=== PATIENT | female | born 1965 | race Caucasian/White ===

== ENCOUNTER 2018-04-09 09:56 | Outpatient (CLI) | payer OTHER, SELFPAY ==
[2018-04-09 11:32] LABS: Anion Gap 8.2 mmol/L (3-11); BUN 14 mg/dL (7-18); CO2 28.8 mmol/L (21.0-32.0); CREATININE 0.64 mg/dL (0.55-1.02); Chloride 105 mmol/L (98-107); Cholesterol 194 mg/dL (50-200); Glucose 101 mg/dL (70-100); HDL Cholesterol 52 mg/dL (40-60); LDL CHOLESTEROL 123 mg/dL (<100); Potassium 4.3 mmol/L (3.5-5.1); Sodium 142 mmol/L (136-145); Triglyceride 99 mg/dL (30-150)
== END 2018-04-09 10:16 ==
PROVIDERS: PCP General Practice; Visit Provider General Practice
DX: Z00.00 Encounter for general adult medical examination without abnormal findings (principal); I10 Essential (primary) hypertension
CPT/HCPCS: 36415; 80051; 80061; 82947; 83721; 84520; 82565

== ENCOUNTER 2019-06-09 15:34 | Outpatient (REF) | payer OTHER, SELFPAY | END 2019-06-09 15:54 | LOC: LBN 15:34 | PROVIDERS: PCP Nurse Practitioner Adult Health; Visit Provider Nurse Practitioner Adult Health | DX: R53.81 Other malaise (principal); R53.83 Other fatigue; R50.9 Fever, unspecified | CPT/HCPCS: 87449 ==

== ENCOUNTER 2019-06-23 11:40 | Outpatient (REF) | payer OTHER, SELFPAY ==
--- NOTE | 2019-06-23 11:45 | PAPFT_PTH ---
PATIENT: Uri Wadsworth LOC: [facility] U#:[id number] AGE/SX: 54/F ROOM: RE06/23/[address]: Karla Washington APRN : 1965 BED: DIS: 06/23/2019 SPEC #: [id number] RECD: 06/23/19 18:28 STATUS: LAUREN REMerna #: [id number] SHELBI: 06/23/19 11:[address]: Karla Washington DEPT: [facility] Cytology RECD BY: Ana Barnard Tissues: 1 - CX/ENDOCX FOR PAP SMEARS Procedures: PAP THIN PREP/UVM Screening HPV DNA PROBE Comments: [id number]
== END 2019-06-23 12:00 ==
LOC: LBN 11:40
PROVIDERS: PCP Nurse Practitioner Adult Health; Visit Provider Nurse Practitioner Adult Health
DX: Z12.4 Encounter for screening for malignant neoplasm of cervix (principal); Z11.51 Encounter for screening for human papillomavirus (HPV)
CPT/HCPCS: 88142; 87624

== ENCOUNTER 2019-06-24 02:27 | Outpatient (CLI) | payer OTHER, SELFPAY ==
[2019-06-24 11:46] LABS: ALT 42 U/L (14-59); AST 16 U/L (15-37); Albumin 3.3 g/dL (3.4-5.0); Alkaline Phosphatase 76 U/L (46-116); Anion Gap 7.4 mmol/L (3-11); BUN 13 mg/dL (7-18); Bilirubin, Total 0.4 mg/dL (0.2-1.0); CO2 28.6 mmol/L (21.0-32.0); CREATININE 0.57 mg/dL (0.55-1.02); Calcium 8.9 mg/dL (8.5-10.1); Calculated LDL 114 mg/dL; Chloride 105 mmol/L (98-107); Cholesterol 184 mg/dL (<200); Glucose 110 mg/dL (74-106); HDL Cholesterol 50 mg/dL (40-60); Potassium 3.8 mmol/L (3.5-5.1); Sodium 141 mmol/L (136-145); TSH (W/Ref FT4) 1.08 uIU/mL (0.36-3.74); Total Protein 6.1 g/dL (6.4-8.2); Triglyceride 104 mg/dL (<150)
[2019-06-26 11:32] LABS: Hepatitis C Ab w Rflx HCV PCR Negative (Negative)
== END 2019-06-24 02:47 ==
PROVIDERS: PCP Nurse Practitioner Adult Health; Visit Provider Nurse Practitioner Adult Health
DX: I10 Essential (primary) hypertension (principal); E88.01 Alpha-1-antitrypsin deficiency; R73.01 Impaired fasting glucose; E66.9 Obesity, unspecified; Z11.59 Encounter for screening for other viral diseases
CPT/HCPCS: 36415; 80053; 80061; 86803; 83036; 84443

== ENCOUNTER 2019-06-30 17:11 | Outpatient (REF) | payer OTHER, SELFPAY ==
--- NOTE | 2019-06-30 15:15 | CER_PTH ---
PATIENT: Uri Wadsworth LOC: [facility] U#:[id number] AGE/SX: 54/F ROOM: RE06/30/[address]: Alfredo Anderson MD : 1965 BED: DIS: 06/30/2019 SPEC #: [id number] RECD: 06/30/19 17:46 STATUS: LAUREN REMerna #: [id number] SHELBI: 06/30/19 15:[address]: Alfredo Anderson DEPT: Surgical Specimen RECD BY: Ana Barnard ENTERED: 06/30/19 17:47 SP TYPE: CER MARLEY DR: Karla Washington APRN Tissues: 1 - CERVICAL BIOPSY Procedures: GROSS AND MICRO LEVEL 4 Comments: [id number]
== END 2019-06-30 17:31 ==
LOC: LBN 17:11
PROVIDERS: PCP Nurse Practitioner Adult Health; Visit Provider Obstetrics & Gynecology
DX: N84.1 Polyp of cervix uteri (principal)
CPT/HCPCS: 88305

== ENCOUNTER 2019-11-03 01:41 | Outpatient (CLI) | payer OTHER, SELFPAY ==
--- NOTE | 2019-11-03 09:15 | DI.MAMMO_ITS ---
EXAM: MAMMO SCREENING CLINICAL HISTORY: screening,Z12.39 TECHNIQUE: Mammograms were interpreted according to the usual protocol including computer analysis w [employer] CAD system, tomosynthesis and C-view imaging. COMPARISON: FINDINGS: The breasts are of moderate density with fairly symmetrical distribution of fibroglandular tissue. N o dominant mass or clumped microcalcification is identified in either breast. The current examinatio n is compared with prior studies including October 2017 and there has been no gross interval change in a ppearance in comparison with the prior examinations. IMPRESSION: No specific evidence of malignancy at this time. Routine screening examinations are suggested at yea rly intervals in this age group according to the ACS ACR guidelines. BI-RADS Cat 1 - Negative: Breast Density - Category B - Scattered areas of fibroglandular density:
== END 2019-11-03 02:01 ==
PROVIDERS: PCP Nurse Practitioner Adult Health; Visit Provider Nurse Practitioner Adult Health
DX: Z12.31 Encounter for screening mammogram for malignant neoplasm of breast (principal)
CPT/HCPCS: 77063; 77067

== ENCOUNTER 2020-04-09 07:43 | Outpatient (CLI) | payer OTHER, SELFPAY ==
[2020-04-10 12:36] LABS: SARS-CoV-2 RNA Not Detected (NotDetected); SARS-CoV-2 RNA Source Nasal/Nares
== END 2020-04-09 08:03 ==
PROVIDERS: PCP Nurse Practitioner Adult Health; Visit Provider Surgery
DX: Z11.59 Encounter for screening for other viral diseases (principal); Z01.818 Encounter for other preprocedural examination
CPT/HCPCS: U0003

== ENCOUNTER 2020-04-12 07:03 | Day surgery (SDC) | payer OTHER, SELFPAY ==
[2020-04-12 07:17] VITALS: BP 153/95; PULSE 80; RESP 16; TEMP 36.4; O2SAT 95
[2020-04-12] MEDS: Lactated Ringers 1,000 ML 80 ML IV (07:45)
--- NOTE | 2020-04-12 08:02 | W.PM.DSUDISC ---
Discharge Plan Disposition Patient Disposition: HOME Condition: Good Discharge Details Reason For Visit: Colonoscopy Attending Provider: Katey Muñoz Primary Care Provider: Karla Washington Home Meds and New Rx's Prescriptions: Continued fexofenadine [Patria Allergy] 180 mg tablet 180 mg PO DAILY RF: 0 desloratadine 5 mg tablet 5 mg PO HS RF: 0 epinephrine [EpiPen 2-Manoj] 0.3 mg/0.3 mL auto-injector 0.3 mg IM ONCE RF: 0 allergy drops 3 drp sublingual DAILY RF: 0 Breo Ellipta 200-25 mcg/dose blister with device 1 inh IH DAILY Qty: 180 RF: 3 levalbuterol HCl [Xopenex] 1.25 mg/3 mL solution for nebulization 1.25 mg Inhalation Q4H PRN Qty: 90 RF: 1 levalbuterol tartrate [Xopenex HFA] 45 mcg/actuation HFA aerosol inhaler 1 - 2 inh IH Q6H PRN (Reason: shortness of breath or wheezing) Qty: 15 RF: 1 montelukast [Singulair] 10 MG tablet 10 mg PO DAILY Qty: 90 RF: 3 hydrochlorothiazide 12.5 mg tablet 12.5 mg PO DAILY Qty: 90 RF: 3 lisinopril 20 mg tablet 20 mg PO DAILY Qty: 90 RF: 3 Discharge Instructions Additional Instructions: Findings: Your colonoscopy showed diverticulosis in the sigmoid colon. Make sure to take in 30 grams of fiber daily. Follow up: Plan for routine screening colonoscopy in 10 years. Please call if you develop: fevers >101.5 Nausea or Vomiting Abdominal pain that is not transient DAY SURGERY UNIT POST COLONOSCOPY INSTRUCTIONS 1. Because there will be medication in your system for the next 24 hours, you may feel a little sleepy. Your coordination will be affected. Therefore: a. Do not drive or operate dangerous equipment for 24 hours. b. Do not drink alcohol beverages for 24 hours (not even beer). c. Plan to go home and rest for the day. 2. Generally there are no restrictions on your activity after a day or so has gone by, but you may feel a bit fatigued for a few days. 3 After you arrive home you may have a light meal and return to a normal diet as you can tolerate it without feeling sick to your stomach. 4. After surgery, you may feel pain or discomfort. This should be only transient, but if it persists please contact your doctor. 5. If there are any questions regarding the findings of your procedure, please feel free to contact your doctor. 6. If you are unable to contact your doctor with a problem, contact the hospital at [phone]. 7. Continue all your regular medications unless directed otherwise. I understand the above instructions and have no questions. Signature of Patient or Responsible Adult Escort Date/Time Name of Responsible Adult Escort Signature of Nurse Date/Time Activity:: Activity as Tolerated Diet:: As Tolerated Discharge Orders Discharge Orders: Discharge Order (Routine); Ordered 04/12/20 Ordered By: Katey Muñoz DS: Diagnosis Discharge Diagnosis (1) Diverticulosis: Status: Acute
--- NOTE | 2020-04-12 08:03 | W.COLOREPORT ---
Date of service: 04/12/20 Time of Service: 08:53 Colonoscopy Report Date of procedure: 04/12/20 Pre-op diagnosis general: Screening Post-op diagnosis procedure note: other (Diverticulosis) Procedure: Colonoscopy Surgeon: Katey Muñoz Anesthesia proc note operative: MAC Indications: This 54 year old woman presents for her first screening colonoscopy. She has no symptoms or FH colon cancer. Procedure Description: The patient was placed in the left Recinos position. Propofol was titrated to sedation. Digital rectal examination revealed no abnormalities. The scope was advanced to the cecum without difficulty. The ileocecal valve and appendiceal orifice were clearly identified. The prep was adequate although there were areas of solid stool in the sigmoid region that could obscure a small polyp. The scope was slowly withdrawn over the course of greater than 6 minutes with no abnormalities seen in the ascending, transverse, descending colon. The sigmoid colon showed moderate to severe diverticular change. The rectum was normal including on retroflexed view. The patient tolerated the procedure well and was stable to recovery. Plan for routine screening colonoscopy in 10 years or sooner if symptoms indicate.
[2020-04-12 09:30] VITALS: BP 133/83; PULSE 70; RESP 16; TEMP 36.2; O2SAT 96
== END 2020-04-12 10:08 | disposition home or self-care (01) ==
PROVIDERS: PCP Nurse Practitioner Adult Health; Visit Provider Surgery
PROC: 0DJD8ZZ Inspection of Lower Intestinal Tract, Via Natural or Artificial Opening Endoscopic (ICD-10-PCS; CPT 45378; principal; 2020-04-12 08:15)
DX: Z12.11 Encounter for screening for malignant neoplasm of colon (principal); K57.30 Diverticulosis of large intestine without perforation or abscess without bleeding; I10 Essential (primary) hypertension; K21.9 Gastro-esophageal reflux disease without esophagitis; J45.909 Unspecified asthma, uncomplicated
CPT/HCPCS: 45378; J2001

== ENCOUNTER 2021-01-03 15:12 | Outpatient (CLI) | payer OTHER, SELFPAY ==
[2021-01-03 14:28] LABS: Abs Immature Grans 0.03 10^3/uL (0.0-0.06); Absolute Basophil Count 0.08 10^3/uL (0.0-0.2); Absolute Eosinophil Count 0.23 10^3/uL (0.0-0.7); Absolute Lymphocyte Count 1.64 10^3/uL (1.2-3.4); Absolute Monocyte Count 0.46 10^3/uL (0.1-0.8); Absolute Neutrophil Count 5.22 10^3/uL (1.2-6.7); HCT 46.2 % (36.0-46.0); HGB 14.6 g/dL (11.2-15.7); Immature Grans % 0.4; Lymphocytes % 21.4; MCHC 31.6 % (32.0-36.0); MCV 85.6 fL (80-95); MPV 9.6 fL (8.0-11.0); Neutrophils % 68.2; Nucleated RBC 0 %; Platelet Count 258 10^3/uL (130-400); RDW 12.9 % (11.7-14.6); RDW-SD 40.2 fL; WBC 7.66 10^3/uL (4.4-10.8)
[2021-01-06 09:10] LABS: IgE 10 IU/mL (<158)
== END 2021-01-03 15:13 | disposition home or self-care (01) ==
LOC: LBO 15:18
PROVIDERS: PCP Nurse Practitioner Adult Health; Visit Provider Student in an Organized Health Care Education/Training Program
DX: J45.40 Moderate persistent asthma, uncomplicated (principal)
CPT/HCPCS: 36415; 82785; 85025

== ENCOUNTER 2021-01-09 04:38 | Outpatient (CLI) | payer OTHER, SELFPAY ==
[2021-01-09] MEDS: Inhaler, Assist Device 1 EACH MC (12:22)
[2021-01-09] MEDS: Albuterol HFA 18 GM 200 PUFF INH IH (12:22)
--- NOTE | 2021-01-10 15:05 | W.PFT ---
Date of service: 01/09/21 Time of Service: 11:23 Pulmonary Function Test Result Requesting Provider Elmer Interpretation Spirometry: There is no airflow limitation. There is no significant bronchodilator effect. Impression Normal spirometry. Note: When compared to 02/10/2010 there has been essentially no change in her FEV1 and FVC when accounting for changes related to aging. Clinical Correlation therefore is recommended.
== END 2021-01-09 04:39 | disposition home or self-care (01) ==
LOC: RT 04:38
PROVIDERS: PCP Nurse Practitioner Adult Health; Visit Provider Student in an Organized Health Care Education/Training Program
DX: J45.909 Unspecified asthma, uncomplicated (principal)
CPT/HCPCS: 94060

== ENCOUNTER 2022-01-08 01:53 | Outpatient (CLI) | payer OTHER, SELFPAY ==
[2022-01-08 10:13] LABS: Hemoglobin A1C 6.2 % (<5.7)
[2022-01-08 10:15] LABS: BUN 12 mg/dL (7-18); CREATININE 0.6 mg/dL (0.55-1.02); Calcium 8.6 mg/dL (8.5-10.1); Calculated LDL 92 mg/dL (<100); Chloride 105 mmol/L (98-107); Cholesterol 168 mg/dL (<200); Glucose 109 mg/dL (74-106); HDL Cholesterol 54 mg/dL (40-60); Potassium 3.7 mmol/L (3.5-5.1); Sodium 143 mmol/L (136-145); Triglyceride 111 mg/dL (<150)
== END 2022-01-08 01:54 | disposition home or self-care (01) ==
PROVIDERS: PCP Nurse Practitioner Adult Health; Visit Provider Nurse Practitioner Adult Health
DX: I10 Essential (primary) hypertension (principal); R73.01 Impaired fasting glucose; E66.9 Obesity, unspecified; Z13.220 Encounter for screening for lipoid disorders
CPT/HCPCS: 36415; 80048; 80061; 83036

== ENCOUNTER → 2022-01-09 00:14 | Outpatient (CLI) | payer OTHER, SELFPAY ==
--- NOTE | 2022-01-09 07:30 | DI.MAMMO_ITS ---
Exam(s) MAMMO SCREENING EXAM: MAMMO SCREENING CLINICAL HISTORY: screening,z12.39 TECHNIQUE: Mammograms were interpreted according to the usual protocol including computer analysis w [employer] CAD system, tomosynthesis and C-view imaging. COMPARISON: 2013 through 2019 FINDINGS: The breasts are composed of mainly fatty density , Breast Density category A. No suspicious masses or suspicious microcalcifications are seen. No skin thickening or abnormal axillary lymph nodes are seen. There has been no significant change from prior exams. IMPRESSION: BI-RADS Category 1, Negative mammogram Yearly screening mammography is recommended. Breast Density - Category A, fatty density. A negative radiographic report should not delay biopsy if a dominant or clinically suspicious mass is present. Up to ten percent of cancers are not identified on mammography. A negative report may reinforce clinical impression. Adenosis and dense breasts may obscure an underlying neoplasm. False positive reports average 6 to 10%. Patient will receive a letter notifying them of these results.
== END ==
PROVIDERS: PCP Nurse Practitioner Adult Health; Visit Provider Nurse Practitioner Adult Health
DX: Z12.31 Encounter for screening mammogram for malignant neoplasm of breast (principal)
CPT/HCPCS: 77063; 77067

== ENCOUNTER 2023-04-07 01:57 | Outpatient (CLI) | payer OTHER, SELFPAY ==
[2023-04-07 10:03] LABS: Anion Gap 8.3 mmol/L (3-11); BUN 14 mg/dL (7-18); CO2 27.7 mmol/L (21.0-32.0); CREATININE 0.8 mg/dL (0.55-1.02); Calcium 9.2 mg/dL (8.5-10.1); Chloride 104 mmol/L (98-107); Estimated GFR 85.35 (mL/min/1.73m2); Glucose 122 mg/dL (74-106); Potassium 3.6 mmol/L (3.5-5.1); Sodium 140 mmol/L (136-145)
[2023-04-07 10:18] LABS: Hemoglobin A1C 6.2 % (<5.7)
== END 2023-04-07 01:58 | disposition home or self-care (01) ==
LOC: LBO 01:57
PROVIDERS: PCP Nurse Practitioner Adult Health; Visit Provider Nurse Practitioner Adult Health
DX: I10 Essential (primary) hypertension (principal); R73.01 Impaired fasting glucose
CPT/HCPCS: 36415; 80048; 83036

== ENCOUNTER → 2023-04-15 03:20 | Outpatient (CLI) | payer OTHER, SELFPAY ==
--- NOTE | 2023-04-15 11:35 | DI.RAD_ITS ---
Exam(s) XR KNEE LT 3V AP,LAT,MANUEL EXAM: XR KNEE LT 3V AP,LAT,MANUEL CLINICAL HISTORY: ant knee pain,LT,M25.562. TECHNIQUE: 2D digital imaging was performed. Three views. COMPARISON: No exams were available for comparison FINDINGS: BONES: No acute fracture is present. No bony destructive lesion is seen. JOINTS: Severe narrowing of the medial femoral tibial joint space with periarticular spurring and scl erosis. This creates some varus angulation. Mild spurring from the lateral femoral tibial joint and patellofemoral joint. Bipartite patella at upper lateral border. No joint effusion is seen. SOFT TISSUE: Normal. IMPRESSION: Severe degenerative changes of the medial femoral tibial joint. DATA REPOSITORY: RADIATION DOSE DELIVERED:
== END ==
PROVIDERS: PCP Nurse Practitioner Adult Health; Visit Provider Nurse Practitioner Adult Health
DX: M17.12 Unilateral primary osteoarthritis, left knee (principal)
CPT/HCPCS: 73562

== ENCOUNTER 2024-01-24 02:30 | Outpatient (CLI) | payer OTHER, SELFPAY ==
--- NOTE | 2024-01-24 08:45 | DI.MAMMO_ITS ---
Exam(s) MAMMO SCREENING EXAM: MAMMO SCREENING CLINICAL HISTORY: screening, Z12.39. TECHNIQUE: Bilateral full field digital CC and MLO mammographic images were obtained with 3D tomosyn thesis and utilizing computer aided detection (CAD). COMPARISON: Prior mammograms were reviewed. FINDINGS: There has been no significant change in the appearance and distribution of the fibroglandular tissue. There are no new spiculated masses nor malignant appearing microcalcification groups. There is no significant architectural distortion nor skin thickening-retraction. IMPRESSION: No radiographic evidence of malignancy. BI-RADS Category 1 - Negative Breast Density - Category B - Scattered areas of fibroglandular density Breast density Category C or D implies that the patient has dense breast tissue. Dense breast tissue can make it harder to find cancer on a mammogram. Dense breast tissue is also associated with an incr eased risk of breast cancer. This information about the result of the mammogram report was provided to the patient to raise their awareness. Use this report when you speak with the patient about their risks for breast cancer, which includes their family history. At that time, you may recommend additional screening tests (Ultrasoun d or MRI) as these tests may add significant information. A negative radiographic report should not delay biopsy if a dominant or clinically suspicious mass is present. Up to ten percent of cancers are not identified on mammography. A negative report may reinforce clinical impression. Adenosis and dense breasts may obscure an underlying neoplasm. False positive reports average 6 to 10%. Patient will receive a letter notifying them of these results.
== END 2024-01-24 02:50 ==
LOC: DI 02:30
PROVIDERS: PCP Nurse Practitioner Adult Health; Visit Provider Nurse Practitioner Adult Health
DX: Z12.31 Encounter for screening mammogram for malignant neoplasm of breast (principal)
CPT/HCPCS: 77063; 77067

== ENCOUNTER 2024-02-08 16:29 | Outpatient (CLI) | payer OTHER, SELFPAY ==
[2024-02-08 17:06] LABS: TSH (W/Ref FT4) 1.33 uIU/mL (0.36-3.74)
== END 2024-02-08 16:30 | disposition home or self-care (01) ==
LOC: LBO 16:30
PROVIDERS: PCP Nurse Practitioner Adult Health; Visit Provider Obstetrics & Gynecology
DX: N93.8 Other specified abnormal uterine and vaginal bleeding (principal)
CPT/HCPCS: 36415; 83001; 84443

== ENCOUNTER 2024-02-11 18:34 | Outpatient (REF) | payer OTHER, SELFPAY ==
[2024-02-11 15:59] LABS: Anion Gap 4.9 mmol/L (3-11); BUN 17 mg/dL (7-18); CO2 30.1 mmol/L (21.0-32.0); CREATININE 0.7 mg/dL (0.55-1.02); Calcium 9.5 mg/dL (8.5-10.1); Chloride 101 mmol/L (98-107); Estimated GFR 99.57 (mL/min/1.73m2); Glucose 146 mg/dL (74-106); Sodium 136 mmol/L (136-145)
== END 2024-02-11 18:35 | disposition home or self-care (01) ==
LOC: LBN 18:34
PROVIDERS: PCP Nurse Practitioner Family; Visit Provider Nurse Practitioner Family
DX: I10 Essential (primary) hypertension (principal); Z23 Encounter for immunization
CPT/HCPCS: 80048

== ENCOUNTER 2024-03-08 12:00 | Outpatient (CLI) | payer OTHER, SELFPAY ==
[2024-03-08 12:09] VITALS: BP 148/81; PULSE 73; RESP 14; TEMP 36.1; O2SAT 96
--- NOTE | 2024-03-08 12:37 | PDOC.PAIN_ITS ---
Date of service: 03/08/24 Time of Service: 13:12 Pain Managment Procedure Note Procedure Note Procedure Note: Genicular Nerve Block ? Location: Left Superior Lateral, Superior Medial, Medial Retinacular and Inferior Medial Genicular Nerve Branches ? Pre-procedure Diagnosis: M25.562 Pain in left knee? , M17.12 Unliateral primary osteoarthritis, left knee ? Post-procedure Diagnosis:? The same as above ? Sedation:? none ? Estimated blood loss:? less than 2 cc ? Surgeon:? Greyson Emerson MD ? Procedure Detail:? The patient was brought to the procedure room and placed in the supine position on the fluoroscopy table. The patient's left knee was then placed on pillows as tolerated to facilitate modest flexion of the joint and offset from the non-treated knee in the lateral view. Time out was performed in the procedure room with nursing staff confirming the patient's identity, procedure to be performed, allergies, and any blood thinning or anti- platelet medications. The skin of the target knee was prepped with ChloraPrep in a sterile fashion. Sterile gloves were used, a face mask was worn, and new single dose vials of all medications were used with the top being swabbed with alcohol and given time to dry prior to withdrawal of medication.? The superior medial and superior lateral epicondyles of the femur as well as the distal aspect of the medial tibial epicondyle was identified using an AP fluoroscopic view.?Ethyl Chloride was used to anesthetize the skin. With fluoroscopic guidance, four 22 gauge 5, Quincke needles were advanced until reaching the mid-level of the femur and tibia at the expected location of the genicular nerve branches. 0.5 mL of contrast was injected at each of the nerve sites after negative aspiration.? Contrast showed appropriate spread covering the expected location of the genicular nerve branches. Again, after negative aspiration, 1 mL of 0.5% Bupivacaine was injected at each of the sites.? The needles were gently removed.? The patient tolerated the procedure well and was transferred to the recovery room in stable condition.? Permanent images were saved and recorded. PLAN: Pt will f/u for genicular RF or office visit depending on whether meets criteria. COMMENT: WILL USE 100MM RF CANULA
[2024-03-08 12:42] VITALS: O2SAT 98
[2024-03-08 12:50] VITALS: O2SAT 98
--- NOTE | 2024-03-08 13:07 | DI.RAD_ITS ---
Exam(s) XR PAIN CLINIC FLUORO JOINT IN EXAM: XR PAIN CLINIC FLUORO JOINT IN CLINICAL HISTORY: DX: Left knee Osteoarthritis. TECHNIQUE: Fluoroscopy was provided for the referring physician for guidance with performing pain cl inic injection procedure. COMPARISON: No exams were available for comparison FINDINGS: Please see procedure note for details. Fluoro time: 38.6 seconds RADIATION DOSE DELIVERED: brandan Wick=5.68 mGy
[2024-03-08] MEDS: Omnipaque 240 MG/ML 50 ML BTL IJ (13:08)
[2024-03-08] MEDS: Nerve Block Tray 1 EACH MC (13:08)
[2024-03-08] MEDS: Bupivacaine 0.5% Pres-Free 10 ML VIAL IJ (13:08)
== END 2024-03-08 12:01 | disposition home or self-care (01) ==
LOC: PC 12:00
PROVIDERS: PCP Nurse Practitioner Family; Visit Provider Anesthesiology Pain Medicine
DX: M17.12 Unilateral primary osteoarthritis, left knee (principal)
CPT/HCPCS: 00123; 64454; 77002; J0665; Q9967

== ENCOUNTER 2024-03-13 16:36 | Outpatient (REF) | payer OTHER, SELFPAY ==
[2024-03-13 16:59] LABS: Abs Immature Grans 0.02 10^3/uL (0.0-0.06); Absolute Basophil Count 0.07 10^3/uL (0.0-0.2); Absolute Eosinophil Count 0.16 10^3/uL (0.0-0.7); Absolute Lymphocyte Count 1.47 10^3/uL (1.2-3.4); Absolute Monocyte Count 0.54 10^3/uL (0.1-0.8); Absolute Neutrophil Count 3.82 10^3/uL (1.2-6.7); Basophils % 1.2 %; Eosinophils % 2.6 %; HCT 41.9 % (36.0-46.0); Immature Grans % 0.3 %; Lymphocytes % 24.2 %; MCH 27.7 pg (27.0-33.0); MCHC 33.4 % (32.0-36.0); MCV 83 fL (80-95); MPV 10.2 fL (8.0-11.0); Monocytes % 8.9 %; Neutrophils % 62.8 %; Platelet Count 238 10^3/uL (130-400); RBC 5.06 10^6/uL (3.93-5.22); RDW 13.2 % (11.7-14.6); RDW-SD 39.7 fL; WBC 6.08 10^3/uL (4.4-10.8)
[2024-03-13 17:08] LABS: ESR 17 mm/hr (0-30)
[2024-03-13 17:32] LABS: C-Reactive Protein 1.32 mg/dL (<or=0.5)
[2024-03-14 17:40] LABS: Rheumatoid Factor 10.2 IU/mL (<12.0)
[2024-03-15 09:54] LABS: Cyclic Citrullinated Peptide <2.5 U/mL (<5.0)
[2024-03-15 10:38] LABS: IgE 19 IU/mL (<158)
[2024-03-15 16:05] LABS: ANA Interpretation Negative (Negative)
[2024-03-15 20:10] LABS: Scl 70 Antibodies, IgG <0.2 U
[2024-03-15 21:49] LABS: Myeloperoxidase Ab IgG <0.2 U (>=0.4); Proteinase 3 Ab (PR3) <0.2 U
== END 2024-03-13 16:37 | disposition home or self-care (01) ==
LOC: LBN 16:36
PROVIDERS: PCP Nurse Practitioner Family; Visit Provider Physician Assistant Surgical
DX: J45.40 Moderate persistent asthma, uncomplicated (principal); I89.0 Lymphedema, not elsewhere classified
CPT/HCPCS: 85652; 86200; 82785; 83516; 85025; 86038; 86140; 86235; 86431

== ENCOUNTER 2024-04-04 08:29 | Outpatient (CLI) | payer OTHER, SELFPAY ==
[2024-04-04] VITALS (14 sets, daily range): BP systolic 124–145; BP diastolic 69–88; PULSE 69–92; RESP 7–20; TEMP 36.5; O2SAT 94–100
--- NOTE | 2024-04-04 09:20 | PDOC.PAIN_ITS ---
Date of service: 04/04/24 Time of Service: 10:12 Pain Managment Procedure Note Procedure Note Procedure Note: ?Genicular Nerve COOLED RF ? Location: Left Superior Lateral, Superior Medial, Suprapatellar and Inferior Medial Genicular Nerve Branches ? Pre-procedure Diagnosis: M25.562 Pain in left knee? , M17.12 Unliateral primary osteoarthritis, left knee ? Post-procedure Diagnosis:? The same as above ? Sedation: VERSED 1 MG Fentanyl 50mcg ? Estimated blood loss:? less than 2 cc ? Surgeon:? Greyson Emerson MD ? Procedure Detail:? The patient was brought to the procedure room and placed in the supine position on the fluoroscopy table. The patient's? LEFT knee was then placed on pillows as tolerated to facilitate modest flexion of the joint and offset from the non-treated knee in the lateral view. Time out was pe rformed in the procedure room with nursing staff confirming the patient's identity, procedure to be performed, allergies, and any blood thinning or anti- platelet medications. The skin of the target knee was prepped with ChloraPrep in a sterile fashion. Sterile gloves were used, a face mask was worn, and new single dose vials of all medications were used with the top being swabbed with alcohol and given time to dry prior to withdrawal of medication.? The superior medial and superior lateral epicondyles of the femur, 3cm above the patella midline femur as well as the distal aspect of the medial tibial epicondyle was identified using an AP fluoroscopic view.? With fluoroscopic guidance, three? 17-gauge 4mm active tip radiofrequency cannula was advanced to the periosteum at this location.? AP and lateral views confirmed appropriate placement. Motor testing was negative for stimulation up to 2 V. Next 1 cc of 2% lidocaine was injected through each needle tip. Lesioning was then carried out at 60 degrees Celsius for 150 seconds? The needles were gently removed.? The patient tolerated the procedure well and was transferred to the recovery room in stable condition.? Permanent images were saved and recorded. Pain: pre-preprocedure 10 post procedure 010 PLAN: Pt will f/u prn. Repeat prn
[2024-04-04] MEDS: fentaNYL 100 MCG/2 ML VIAL IVP (09:30)
[2024-04-04] MEDS: Midazolam 2 MG/2 ML VIAL IVP (09:30)
[2024-04-04] MEDS: Lidocaine 2% Multi-Dose 20 ML VIAL IJ (10:07)
[2024-04-04] MEDS: Nerve Block Tray 1 EACH MC (10:08)
--- NOTE | 2024-04-04 10:11 | DI.RAD_ITS ---
Exam(s) XR PAIN CLINIC FLUORO JOINT IN EXAM: XR PAIN CLINIC FLUORO JOINT IN CLINICAL HISTORY: DX: Knee Osteoarthritis TECHNIQUE: 2D and realtime digital imaging was performed. CONTRAST MATERIAL: Refer to procedure report. COMPARISON: No exams were available for comparison FINDINGS: Fluoroscopy was provided for Dr. Emerson during the performance of a left genicular nerve radiofrequ ency ablation. Please refer to the procedure report for complete details. Ka,r=7.0 mGy IMPRESSION: RADIATION DOSE DELIVERED: 0.0 0.0 0
== END 2024-04-04 08:30 | disposition home or self-care (01) ==
LOC: PC 08:29
PROVIDERS: PCP Nurse Practitioner Family; Visit Provider Anesthesiology Pain Medicine
DX: M17.12 Unilateral primary osteoarthritis, left knee (principal)
CPT/HCPCS: 00123; 64624; 77002; J2003; J2250; J3010

== ENCOUNTER 2024-05-08 10:58 | Outpatient (CLI) | payer OTHER, SELFPAY ==
--- NOTE | 2024-05-08 10:30 | DI.RAD_ITS ---
Exam(s) XR FOOT RT COMPLETE EXAM: XR FOOT RT COMPLETE CLINICAL HISTORY: rt foot pain, m79.671, ? stress fx. TECHNIQUE: 2D digital imaging was performed. COMPARISON: No exams were available for comparison FINDINGS: 3 views There is dorsal soft tissue swelling and there is pes planus. No evidence of acute fracture or diastasis of the Lisfranc joint. Great toe metatarsophalangeal joint appears unremarkable as do the other MTP joints and there are onl y mild degenerative changes in the 2nd and 3rd tarsometatarsal joints. There is a small inferior richard caneal spur. Os trigonum noted. IMPRESSION: Pes planus. No fractures. DATA REPOSITORY: RADIATION DOSE DELIVERED:
== END 2024-05-08 11:18 ==
LOC: DI 10:59
PROVIDERS: PCP Nurse Practitioner Family; Visit Provider Nurse Practitioner Family
DX: M79.671 Pain in right foot (principal)
CPT/HCPCS: 73630

== ENCOUNTER 2025-05-21 01:26 | Outpatient (CLI) | payer BC, SELFPAY ==
[2025-05-21 09:20] LABS: Hemoglobin A1C 5.8 % (<5.7)
[2025-05-21 10:18] LABS: Anion Gap 8.8 mmol/L (3-11); BUN 16 mg/dL (9-23); CO2 28.2 mmol/L (20.0-31.0); Calcium 9.4 mg/dL (8.3-10.6); Chloride 102 mmol/L (98-107); Cholesterol 193 mg/dL (<200); Glucose 101 mg/dL (74-106); HDL Cholesterol 58 mg/dL (>or=50); Potassium 4.0 mmol/L (3.5-5.1); Sodium 139 mmol/L (136-145)
== END 2025-05-21 01:27 | disposition home or self-care (01) ==
LOC: LBO 01:26
PROVIDERS: PCP Nurse Practitioner Family; Visit Provider Nurse Practitioner Family
DX: R73.01 Impaired fasting glucose (principal); I10 Essential (primary) hypertension
CPT/HCPCS: 36415; 80048; 80061; 83036